=== PATIENT | male | born 1975 | race Caucasian/White ===

== ENCOUNTER 2020-02-09 15:58 | Emergency (ER) | payer BC ==
--- OUTSIDE RECORDS SUMMARY | 2020-02-09 16:01 | XMS REPORT | Continuity of Care Document ---
:1975 Author Organization [facility] t Address [facility] [place] Dr. Waddell [address] [place] [id number] Care Team Providers Name Role Phone DR GIOVANA Attending Clinician Unavailable DR GIOVANA Admitting Clinician Unavailable Problems This patient has no known problems. Allergies, Adverse Reactions, Alerts This patient has no known allergies or adverse reactions. Medications This patient has no known medications. Procedures This patient has no known procedures. Encounters Start End Encounter Admission Attending Care Care Encounter Source Date/Time Date/Time Type Type Clinicians Facility Department ID 2018-07-03 2018-07-03 Outpatient Akil AKHTAR [facility] [id number] 03:08:00 05:20:00 [facility] 2018-03-06 2018-03-06 Outpatient Akil AKHTAR [facility] [id number] 04:06:00 04:06:00 [facility] Results This patient has no known results.
[2020-02-09 17:32] LABS: Absolute Lymphocytes (CBC) 1.7 K/uL (0.7-4.9); Basophils % 1.4 % (0-1.3); Hematocrit 42.5 % (39.6-49.0); Lymphocytes % 20.3 % (15.3-44.8); MPV 9.4 fL (7.6-11.3); RBC Red Blood Cell Count 5.17 M/uL (4.33-5.43)
[2020-02-09 17:58] LABS: BUN Blood Urea Nitrogen 12 mg/dL (7-18); Bicarbonate 28 mmol/L (21-32); Glucose Level 96 mg/dL (74-106); NT PRO-BNP 35 pg/mL (<125); Potassium 3.7 mmol/L (3.5-5.1); Sodium Level 142 mmol/L (136-145); Troponin (Emerg Dept Use Only) < 0.02 ng/mL (0.0-0.045)
--- NOTE | 2020-02-09 18:13 | ER ---
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 Sandoval. Dr. Sandoval did and EKG and said my HR was 41 and sent me here. Pt reports intermittent tingling to the whole face since this morning. Reports just feeling weird since about 0845. VAN negative in triage. Coronavirus screen: Patient denies a cough. Patient denies shortness of breath or difficulty breathing. Patient denies measured and/or subjective temperature greater than 100.4F prior to today's visit. Patient denies travel on a cruise ship or to a country the [facility] currently lists as an affected area. Patient denies contact with known and/or suspected case of COVID-19. Proceed with normal triage. Ebola Screen: No symptoms or risks identified at this time. Initial Sepsis Screen: Does the patient meet any 2 criteria? No. Patient's initial sepsis screen is negative. Does the patient have a suspected source of infection? No. Patient's initial sepsis screen is negative. Risk Assessment: Do you want to hurt yourself or someone else? Patient reports no desire to harm self or others. Onset of symptoms was February 09, 2020 at 08:45. Care prior to arrival: None. 16:21 Method Of Arrival: Ambulatory [facility] 16:21 Acuity: LEWIS 3 jl7 Triage Assessment: 16:28 General: Appears in no apparent distress. uncomfortable, Behavior is calm, cooperative, jl7 appropriate for age. Pain: Denies pain. Historical: - Allergies: 16:28 No Known Allergies; jl7 - Home Meds: 16:28 None [Active]; jl7 - PMHx: 16:28 None; jl7 - PSHx: 16:28 None; jl7 - Immunization history:: Adult Immunizations unknown. - Social history:: Smoking status: Patient denies any tobacco usage or history of. Smoking status: Patient reports use of chewing tobacco. - Family history:: not pertinent. - Hospitalizations: : No recent hospitalization is reported. Screenin:30 Abuse screen: Denies threats or abuse. Denies injuries from another. Nutritional sv screening: No deficits noted. Tuberculosis screening: No symptoms or risk factors identified. Fall Risk None identified. Assessment: 16:31 General: Appears in no apparent distress. comfortable, Behavior is calm, cooperative, sv appropriate for age. Neuro: Level of Consciousness is awake, alert, obeys commands, Oriented to person, place, time, situation, Gait is steady. Respiratory: Respiratory effort is even, unlabored, Respiratory pattern is regular, symmetrical. Derm: Skin is normal. 17:15 Neuro: Reports feeling like a hot flash sensation on his face that has been sv intermittent for a while.. Cardiovascular: Denies chest pain. Cardiovascular: Rhythm is sinus bradycardia. Respiratory: Denies shortness of breath. 18:32 Reassessment: Patient appears in no apparent distress at this time. No changes from sv previously documented assessment. Patient and/or family updated on plan of care and expected duration. Pain level reassessed. Patient is alert, oriented x 3, equal unlabored respirations, skin warm/dry/pink. Vital Signs: 16:21 BP 143 / 101; Pulse 52; Resp 17; Temp 97.1; Pulse Ox 99% ; Weight 104.78 kg; Height 6 jl7 ft. 3 in. (190.50 cm); Pain 0/10; 17:24 BP 125 / 84; Pulse 44 MON; Resp 12; Pulse Ox 98% on R/A; sv 17:58 BP 127 / 86; Pulse 51 MON; Resp 12; Pulse Ox 97% ; sv 16:21 Body Mass Index 28.87 (104.78 kg, 190.50 cm) jl7 17:24 Sinus bradycardia sv 17:58 Sinus bradycardia sv ED Course: 16:10 Patient arrived in ED. fj1 16:28 Triage completed. jl7 16:28 Arm band placed on right wrist. jl7 16:29 Deborah Moreno, PEPE is Primary Nurse. sv 16:29 Rakesh Martinez MD is Attending Physician. rn 16:30 Patient has correct armband on for positive identification. Bed in low position. Call sv light in reach. Door closed. Head of bed elevated. 17:15 EKG done, by ED staff, reviewed by Rakesh Martinez MD. Inserted saline lock: 20 gauge in sv right antecubital area, using aseptic technique. Blood collected. Flushed right antecubital with 5 ml normal saline. 18:11 Devon Don MD is Referral Physician. rn 18:32 No provider procedures requiring assistance completed. IV discontinued, intact, sv bleeding controlled, No redness/swelling at site. Pressure dressing applied. Administered Medications: No medications were administered Outcome: 18:12 Discharge ordered by . rn 18:33 Discharged to home ambulatory. sv 18:33 Condition: stable 18:33 Discharge instructions given to patient, Instructed on discharge instructions, follow up and referral plans. Demonstrated understanding of instructions, follow-up care. 18:33 Patient left the ED. sv Signatures: Deborah Moreno RN Rakesh Foote MD MD rn Leal, Jahala, RN RN jl7 Amado Yoder fj
--- NOTE | 2020-02-09 18:13 | EDPHYS ---
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 17:47 Sent by pcp for low heart rate. Reports began this morning at work, felt lightheaded, rn no syncope, comes and goes, no skipping beats and heart racing, has never happened before, does not take medication, no chest pain/sob/focal neuro complaints. No famhx of cardiac problems at his age or anything requiring pacemaker. Feels fine right now. Told heart rate in 40s and to come to ER because would have faster testing than outpt. . Onset: The symptoms/episode began/occurred this morning. Severity of symptoms: At their worst the symptoms were mild in the emergency department the symptoms have improved. The patient has not experienced similar symptoms in the past. The patient has been recently seen by a physician:. Historical: - Allergies: 16:28 No Known Allergies; jl7 - Home Meds: 16:28 None [Active]; jl7 - PMHx: 16:28 None; jl7 - PSHx: 16:28 None; jl7 - Immunization history:: Adult Immunizations unknown. - Social history:: Smoking status: Patient denies any tobacco usage or history of. Smoking status: Patient reports use of chewing tobacco. - Family history:: not pertinent. - Hospitalizations: : No recent hospitalization is reported. ROS: 17:47 Constitutional: Negative for fever, chills, and weight loss, Eyes: Negative for injury, rn pain, redness, and discharge, Neck: Negative for injury, pain, and swelling, Cardiovascular: Negative for chest pain, palpitations, and edema, Respiratory: Negative for shortness of breath, cough, wheezing, and pleuritic chest pain, Abdomen/GI: Negative for abdominal pain, nausea, vomiting, diarrhea, and constipation, Back: Negative for injury and pain, MS/Extremity: Negative for injury and deformity, Skin: Negative for injury, rash, and discoloration, Neuro: Negative for headache, weakness, numbness, tingling, and seizure. Exam: 17:23 ECG was reviewed by the Attending Physician. rn 17:47 Constitutional: This is a well developed, well nourished patient who is awake, alert, rn and in no acute distress. Head/Face: Normocephalic, atraumatic. Cardiovascular: Regular rhythm, bradycardic, equal pulses, no cyanosis Respiratory: Speaking full sentences. No increased work of breathing, no retractions or nasal flaring. Abdomen/GI: soft, non-tender, no palpable masses Skin: Warm, dry MS/ Extremity: Pulses equal, no cyanosis. Neuro: Awake and alert, GCS 15, oriented to person, place, time, and situation. Cranial nerves II-XII grossly intact. Motor strength 5/5 in all extremities. Sensory grossly intact. Cerebellar exam normal. Normal gait. Vital Signs: 16:21 BP 143 / 101; Pulse 52; Resp 17; Temp 97.1; Pulse Ox 99% ; Weight 104.78 kg; Height 6 jl7 ft. 3 in. (190.50 cm); Pain 0/10; 17:24 BP 125 / 84; Pulse 44 MON; Resp 12; Pulse Ox 98% on R/A; sv 17:58 BP 127 / 86; Pulse 51 MON; Resp 12; Pulse Ox 97% ; sv 16:21 Body Mass Index 28.87 (104.78 kg, 190.50 cm) jl7 17:24 Sinus bradycardia sv 17:58 Sinus bradycardia sv MDM: 16:29 Patient medically screened. rn 18:01 Differential Diagnosis bradycardia. Data reviewed: vital signs, nurses notes, lab test rn result(s), EKG, and as a result, I will discharge patient. Counseling: I had a detailed discussion with the patient and/or guardian regarding: the historical points, exam findings, and any diagnostic results supporting the discharge/admit diagnosis, lab results, the need for outpatient follow up, to return to the emergency department if symptoms worsen or persist or if there are any questions or concerns that arise at home. ED course: Sinus bradycardia on ECG, no arrythmia on monitor, thyroid studies and electrolytes fine, not on medication. Pt pulled up his sleep number woodrow that tracks HR and RR, woodrow reports average resting HR 52. Currently HR 51. No symptoms of ischemia, no neurological findings. Recommend outpt f/u with cardiology for stress test, ECHO, holter. Return precautions given and understood. . 18:10 ED course: Consulted with Dr. 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 . 02/08 16:56 Order name: BNP; Complete Time: 18:00 rn 02/08 16:56 Order name: TSH; Complete Time: 18:00 rn 02/08 16:56 Order name: T4 Free; Complete Time: 18:00 rn 02/08 16:56 Order name: CBC with Diff; Complete Time: 17:42 rn 02/08 16:56 Order name: Basic Metabolic Panel; Complete Time: 18:00 rn 02/08 16:56 Order name: Troponin (emerg Dept Use Only); Complete Time: 18:00 rn 02/08 16:56 Order name: IV Start; Complete Time: 17:23 rn 02/08 16:56 Order name: EKG; Complete Time: 16:56 rn 02/08 16:56 Order name: EKG - Nurse/Tech; Complete Time: 17: rn EC: Rate is 46 beats/min. Rhythm is regular. QRS Rudy is Normal. SC interval is normal. QRS rn interval is normal. QT interval is normal. No Q waves. T waves are Normal. No ST changes noted. Clinical impression: Sinus bradycardia. Interpreted by me. Reviewed by me. Administered Medications: No medications were administered Disposition: 02/09/20 18:12 Discharged to Home. Impression: Bradycardia, unspecified. - Condition is Stable. - Discharge Instructions: Bradycardia, Adult. - Work release form, Medication Reconciliation Form, Thank You Letter, Antibiotic Education, Prescription Opioid Use form. - Follow up: Devon Don MD; When: 02/14/20 0830; Reason: Further diagnostic work-up, Recheck today's complaints, Continuance of care. - Problem is new. - Symptoms have improved. Signatures: Dispatcher [employer] Deborah Garcia RN Rakesh Foote MD MD rn Leal, Jahala, RN RN jl7 Corrections: (The following items were deleted from the chart) 18:33 18:12 02/09/2020 18:12 Discharged to Home. Impression: Bradycardia, unspecified. sv Condition is Stable. Forms are Medication Reconciliation Form, Thank You Letter, Antibiotic Education, Prescription Opioid Use. Follow up: Devon Don; When: Friday, 02/14/20829; Reason: Further diagnostic work-up, Recheck today's complaints, Continuance of care. Problem is new. Symptoms have improved. rn
[2020-02-10 00:18] VITALS: TEMP 97.1
[2020-02-10 00:20] VITALS: BP 127/86; O2SAT 97
--- NOTE | 2020-02-10 07:25 | EKG ---
Test Date: 2020-02-09 Test Time: 17:13:56 Senior Attorney: BREANN MEASUREMENT RESULTS: Intervals: Rate: 0 TN: QRSD: 0 QT: 0 QTc: 0 [place]: P: TN: QRS: 0 T: 0 INTERPRETIVE STATEMENTS: No QRS complexes found, no ECG analysis possible Compared to ECG 06/29/2018 16:39:16 Sinus bradycardia no longer present Electronically Signed On 02-10-20 07:24:47 CDT by Devon Don
== END 2020-02-09 18:33 | disposition home or self-care (01) ==
LOC: ER 15:58
DX: R00.1 Bradycardia, unspecified (principal)
CPT/HCPCS: 36415; 80048; 83880; 84439; 84443; 84484; 85025; 93005; 99284